=== PATIENT | male | born 1950 | race Caucasian/White ===

== ENCOUNTER → 2016-10-26 | Outpatient (REF) | payer OTHER ==
[2016-10-26 17:42] LABS: ALBUMIN 3.9 GM/DL (3.2-5.2); ALBUMIN/GLOBULIN RATIO 1.22 (1.00-1.93); ALKALINE PHOSPHATASE 60 U/L (45-117); ALT/SGPT 45 U/L (12-78); ANION GAP 11 MEQ/L (8-16); AST/SGOT 21 U/L (15-37); BILIRUBIN,TOTAL 0.4 MG/DL (0.2-1.0); BLOOD UREA NITROGEN 13 MG/DL (7-18); CALCIUM LEVEL 9.1 MG/DL (8.8-10.2); CARBON DIOXIDE LEVEL 29 MEQ/L (21-32); CHLORIDE LEVEL 100 MEQ/L (98-107); CHOLESTEROL LEVEL 170 MG/DL (<200); CREATININE FOR GFR 1.13 MG/DL (0.70-1.30); GLOMERULAR FILTRATION RATE > 60.0 (>49); GLUCOSE, FASTING 145 MG/DL (80-110); POTASSIUM SERUM 3.6 MEQ/L (3.5-5.1); SODIUM LEVEL 140 MEQ/L (136-145); TOTAL PROTEIN 7.1 GM/DL (6.4-8.2); TRIGLYCERIDES LEVEL 268 MG/DL (<150)
[2016-10-26 18:31] LABS: MEAN CORPUSCULAR HEMOGLOBIN 28.9 pg (27.0-33.0); MEAN CORPUSCULAR VOLUME 85.2 fl (80.0-96.0); RED CELL DISTRIBUTION WIDTH 12.5 % (11.5-14.5); WHITE BLOOD COUNT 8.3 K/mm3 (4.0-10.0)
== END ==
LOC: M SFHCCAPE 07:10
PROVIDERS: ATTEND Physician Assistant
DX: I10 Essential (primary) hypertension (principal); E11.9 Type 2 diabetes mellitus without complications; E78.2 Mixed hyperlipidemia; Z12.5 Encounter for screening for malignant neoplasm of prostate

== ENCOUNTER → 2017-02-01 | Outpatient (REF) | payer OTHER ==
[2017-02-01 18:58] LABS: BASO % 0.3 % (0.0-1.0); EOS # 0.2 K/mm3 (0.0-0.50); EOS % 1.8 % (0.0-3.0); LARGE UNSTAINED CELL # 0.1 K/mm3 (0.0-0.4); LARGE UNSTAINED CELL % 1.4 % (0.0-4.0); LYMPH # 2.5 K/mm3 (1.5-4.5); LYMPH % 29.6 % (24.0-44.0); MEAN CORPUSCULAR HEMOGLOBIN 30.1 pg (27.0-33.0); MEAN CORPUSCULAR HGB CONC 34.7 g/dl (32.0-36.5); MEAN CORPUSCULAR VOLUME 86.6 fl (80.0-96.0); MONO # 0.6 K/mm3 (0.0-0.8); NEUTROPHILS # 4.9 K/mm3 (1.8-7.7); NEUTROPHILS % 59.8 % (36.0-66.0); PLATELET COUNT, AUTOMATED 265 k/mm3 (150-450); RED CELL DISTRIBUTION WIDTH 12.7 % (11.5-14.5); WHITE BLOOD COUNT 8.2 K/mm3 (4.0-10.0)
[2017-02-01 19:56] LABS: ALBUMIN 3.8 GM/DL (3.2-5.2); ALBUMIN/GLOBULIN RATIO 1.19 (1.00-1.93); ALKALINE PHOSPHATASE 51 U/L (45-117); ALT/SGPT 45 U/L (12-78); ANION GAP 8 MEQ/L (8-16); AST/SGOT 16 U/L (15-37); BILIRUBIN,TOTAL 0.4 MG/DL (0.2-1.0); BLOOD UREA NITROGEN 19 MG/DL (7-18); CALCIUM LEVEL 9.4 MG/DL (8.8-10.2); CARBON DIOXIDE LEVEL 31 MEQ/L (21-32); CHLORIDE LEVEL 100 MEQ/L (98-107); CHOLESTEROL LEVEL 166 MG/DL (<200); CREATININE FOR GFR 1.11 MG/DL (0.70-1.30); GLOMERULAR FILTRATION RATE > 60.0 (>49); GLUCOSE, FASTING 155 MG/DL (80-110); POTASSIUM SERUM 3.8 MEQ/L (3.5-5.1); SODIUM LEVEL 139 MEQ/L (136-145); TRIGLYCERIDES LEVEL 241 MG/DL (<150)
== END ==
LOC: M SFHCCAPE 07:23
PROVIDERS: ATTEND Physician Assistant
DX: E11.9 Type 2 diabetes mellitus without complications (principal); E78.2 Mixed hyperlipidemia

== ENCOUNTER → 2017-04-05 | Outpatient (REF) | payer OTHER ==
[2017-04-05 19:17] LABS: BASO % 0.4 % (0.0-1.0); EOS # 0.2 K/mm3 (0.0-0.50); EOS % 2.9 % (0.0-3.0); LARGE UNSTAINED CELL # 0.2 K/mm3 (0.0-0.4); LARGE UNSTAINED CELL % 2.1 % (0.0-4.0); LYMPH # 2.5 K/mm3 (1.5-4.5); LYMPH % 33.5 % (24.0-44.0); MEAN CORPUSCULAR HEMOGLOBIN 30.4 pg (27.0-33.0); MEAN CORPUSCULAR HGB CONC 34.9 g/dl (32.0-36.5); MONO # 0.5 K/mm3 (0.0-0.8); MONO % 7.1 % (0.0-5.0); NEUTROPHILS # 3.7 K/mm3 (1.8-7.7); NEUTROPHILS % 54.1 % (36.0-66.0); PLATELET COUNT, AUTOMATED 268 k/mm3 (150-450); RED CELL DISTRIBUTION WIDTH 12.8 % (11.5-14.5); WHITE BLOOD COUNT 6.9 K/mm3 (4.0-10.0)
[2017-04-05 19:24] LABS: ALBUMIN 3.5 GM/DL (3.2-5.2); ALBUMIN/GLOBULIN RATIO 1.03 (1.00-1.93); ALKALINE PHOSPHATASE 50 U/L (45-117); ALT/SGPT 51 U/L (12-78); ANION GAP 5 MEQ/L (8-16); AST/SGOT 17 U/L (15-37); BILIRUBIN,TOTAL 0.4 MG/DL (0.2-1.0); BLOOD UREA NITROGEN 12 MG/DL (7-18); CALCIUM LEVEL 9.3 MG/DL (8.8-10.2); CARBON DIOXIDE LEVEL 32 MEQ/L (21-32); CHLORIDE LEVEL 102 MEQ/L (98-107); CHOLESTEROL LEVEL 175 MG/DL (<200); CREATININE FOR GFR 1.06 MG/DL (0.70-1.30); GLOMERULAR FILTRATION RATE > 60.0 (>49); GLUCOSE, FASTING 162 MG/DL (80-110); POTASSIUM SERUM 3.7 MEQ/L (3.5-5.1); SODIUM LEVEL 139 MEQ/L (136-145); TOTAL PROTEIN 6.9 GM/DL (6.4-8.2); TRIGLYCERIDES LEVEL 279 MG/DL (<150)
== END ==
LOC: M SFHCCAPE 07:05
PROVIDERS: ATTEND Physician Assistant
DX: E11.9 Type 2 diabetes mellitus without complications (principal)

== ENCOUNTER → 2018-06-02 | Outpatient (REF) | payer OTHER ==
[2018-06-02 18:32] LABS: ALKALINE PHOSPHATASE 51 U/L (45-117); ALT/SGPT 29 U/L (12-78); ANION GAP 8 MEQ/L (8-16); AST/SGOT 13 U/L (7-37); BLOOD UREA NITROGEN 14 MG/DL (7-18); CALCIUM LEVEL 9.2 MG/DL (8.8-10.2); CARBON DIOXIDE LEVEL 31 MEQ/L (21-32); CHLORIDE LEVEL 103 MEQ/L (98-107); CREATININE FOR GFR 1.03 MG/DL (0.70-1.30); GLOMERULAR FILTRATION RATE > 60.0 (>49); GLUCOSE, FASTING 97 MG/DL (70-100); SODIUM LEVEL 142 MEQ/L (136-145)
[2018-06-02 18:33] LABS: ALBUMIN 3.6 GM/DL (3.2-5.2); ALBUMIN/GLOBULIN RATIO 1.03 (1.00-1.93); BILIRUBIN,TOTAL 0.4 MG/DL (0.2-1.0); CHOLESTEROL LEVEL 169 MG/DL (<200); CHOLESTEROL RISK RATIO 4.567 (<5); FREE T4 0.93 NG/DL (0.76-1.46); HDL CHOLESTEROL 37 MG/DL (>40); LDL CHOLESTEROL 68.8 MG/DL (<100); NON-HDL-C 132 MG/DL; TOTAL PROTEIN 7.1 GM/DL (6.4-8.2); TRIGLYCERIDES LEVEL 316 MG/DL (<150)
[2018-06-02 18:38] LABS: ESTIMATED AVERAGE GLUCOSE 128 MG/DL (60-110); HEMOGLOBIN A1c 6.1 %
[2018-06-02 20:07] LABS: BASO % 0.5 % (0.0-1.0); EOS # 0.2 10^3/uL (0.0-0.50); HEMATOCRIT 39.6 % (42.0-52.0); IMMATURE GRANULOCYTE % 0.5 % (0-3.0); LYMPH # 2.4 10^3/uL (1.5-4.5); LYMPH % 32.4 % (24.0-44.0); MEAN CORPUSCULAR HEMOGLOBIN 28.8 pg (27.0-33.0); MEAN CORPUSCULAR HGB CONC 32.8 g/dl (32.0-36.5); MEAN CORPUSCULAR VOLUME 87.8 fl (80.0-96.0); MONO # 0.6 10^3/uL (0.0-0.8); MONO % 8.6 % (0.0-5.0); NEUTROPHILS # 4.1 10^3/uL (1.8-7.7); PLATELET COUNT, AUTOMATED 275 10^3/uL (150-450); RED BLOOD COUNT 4.51 10^6/uL (4.30-6.10); RED CELL DISTRIBUTION WIDTH 13.1 % (11.5-14.5); WHITE BLOOD COUNT 7.4 10^3/uL (4.0-10.0)
== END ==
LOC: M SFHCCAPE 07:02
DX: E11.9 Type 2 diabetes mellitus without complications (principal); I10 Essential (primary) hypertension; E78.5 Hyperlipidemia, unspecified

== ENCOUNTER → 2018-06-06 | Outpatient (REF) | payer OTHER ==
[2018-06-07 19:10] LABS: PSA SCREENING 1.66 NG/ML (< 4.0)
== END ==
LOC: M SFHCCAPE 15:12
DX: Z12.5 Encounter for screening for malignant neoplasm of prostate (principal)
CPT/HCPCS: G0103

== ENCOUNTER → 2018-12-08 | Outpatient (REF) | payer OTHER ==
[2018-12-08 17:22] LABS: HEMATOCRIT 37.9 % (42.0-52.0); HEMOGLOBIN 12.8 g/dl (13.5-17.5); MEAN CORPUSCULAR HEMOGLOBIN 29.4 pg (27.0-33.0); MEAN CORPUSCULAR HGB CONC 33.8 g/dl (32.0-36.5); MEAN CORPUSCULAR VOLUME 87.1 fl (80.0-96.0); PLATELET COUNT, AUTOMATED 277 10^3/uL (150-450); RED BLOOD COUNT 4.35 10^6/uL (4.30-6.10); WHITE BLOOD COUNT 12.4 10^3/uL (4.0-10.0)
[2018-12-08 17:34] LABS: CREATININE FOR GFR 1.35 MG/DL (0.70-1.30); GLOMERULAR FILTRATION RATE 56.1 (>49); POTASSIUM SERUM 3.7 MEQ/L (3.5-5.1)
== END ==
LOC: M SFHCCLAY 13:27
PROVIDERS: ATTEND Family Medicine
DX: Z01.818 Encounter for other preprocedural examination (principal)

== ENCOUNTER → 2019-08-02 | Outpatient (REF) | payer OTHER ==
[2019-08-02 17:17] LABS: ALBUMIN 3.7 GM/DL (3.2-5.2); ALT/SGPT 32 U/L (12-78); BILIRUBIN,TOTAL 0.4 MG/DL (0.2-1.0); BLOOD UREA NITROGEN 17 MG/DL (7-18); CALCIUM LEVEL 9.5 MG/DL (8.8-10.2); CARBON DIOXIDE LEVEL 32 MEQ/L (21-32); CHLORIDE LEVEL 103 MEQ/L (98-107); CHOLESTEROL LEVEL 177 MG/DL (<200); CHOLESTEROL RISK RATIO 4.214 (<5); CREATININE FOR GFR 1.19 MG/DL (0.70-1.30); GLOMERULAR FILTRATION RATE > 60.0 (>49); GLUCOSE, FASTING 69 MG/DL (70-100); HDL CHOLESTEROL 42 MG/DL (>40); LDL CHOLESTEROL 92 MG/DL (<100); NON-HDL-C 135 MG/DL; POTASSIUM SERUM 3.6 MEQ/L (3.5-5.1); SODIUM LEVEL 140 MEQ/L (136-145); TOTAL PROTEIN 7.3 GM/DL (6.4-8.2); TRIGLYCERIDES LEVEL 214 MG/DL (<150)
[2019-08-02 17:19] LABS: BASO % 0.5 % (0.0-1.0); EOS # 0.2 10^3/uL (0.0-0.5); EOS % 2.8 % (0.0-3.0); HEMATOCRIT 41.1 % (42.0-52.0); HEMOGLOBIN 13.1 g/dl (13.5-17.5); LYMPH # 2.4 10^3/uL (1.5-5.0); LYMPH % 29.5 % (24.0-44.0); MEAN CORPUSCULAR HEMOGLOBIN 28.4 pg (27.0-33.0); MEAN CORPUSCULAR HGB CONC 31.9 g/dl (32.0-36.5); MEAN CORPUSCULAR VOLUME 89.2 fl (80.0-96.0); MONO # 0.7 10^3/uL (0.0-0.8); MONO % 8.4 % (0.0-5.0); NEUTROPHILS # 4.8 10^3/uL (1.5-8.5); NEUTROPHILS % 58.2 % (36.0-66.0); PLATELET COUNT, AUTOMATED 284 10^3/uL (150-450); RED BLOOD COUNT 4.61 10^6/uL (4.30-6.10); WHITE BLOOD COUNT 8.3 10^3/uL (4.0-10.0)
[2019-08-02 17:40] LABS: MALB URINE SIEMENS 10.1 MG/L
[2019-08-02 17:41] LABS: HEMOGLOBIN A1c 6.4 %
== END ==
LOC: M SFHCCAPE 07:01
PROVIDERS: ATTEND Physician Assistant
DX: E11.8 Type 2 diabetes mellitus with unspecified complications (principal); E78.2 Mixed hyperlipidemia; Z12.5 Encounter for screening for malignant neoplasm of prostate

== ENCOUNTER → 2020-06-25 | Outpatient (REF) | payer OTHER ==
[2020-06-25 12:44] LABS: BASO % 0.5 % (0.0-1.0); EOS # 0.2 10^3/uL (0.0-0.5); HEMATOCRIT 41.5 % (42.0-52.0); HEMOGLOBIN 13.5 g/dl (13.5-17.5); LYMPH # 2.6 10^3/uL (1.5-5.0); MEAN CORPUSCULAR HEMOGLOBIN 28.4 pg (27.0-33.0); MEAN CORPUSCULAR HGB CONC 32.5 g/dl (32.0-36.5); MEAN CORPUSCULAR VOLUME 87.4 fl (80.0-96.0); MONO # 0.7 10^3/uL (0.0-0.8); MONO % 8.5 % (0.0-5.0); NEUTROPHILS # 4.4 10^3/uL (1.5-8.5); NEUTROPHILS % 55.6 % (36.0-66.0); PLATELET COUNT, AUTOMATED 268 10^3/uL (150-450); RED BLOOD COUNT 4.75 10^6/uL (4.30-6.10)
[2020-06-25 12:55] LABS: ALBUMIN 3.6 GM/DL (3.2-5.2); ALT/SGPT 43 U/L (12-78); BILIRUBIN,TOTAL 0.4 MG/DL (0.2-1.0); BLOOD UREA NITROGEN 12 MG/DL (7-18); CALCIUM LEVEL 9.6 MG/DL (8.8-10.2); CARBON DIOXIDE LEVEL 31 MEQ/L (21-32); CHLORIDE LEVEL 103 MEQ/L (98-107); CHOLESTEROL LEVEL 186 MG/DL (<200); CHOLESTEROL RISK RATIO 4.428 (<5); CREATININE FOR GFR 1.13 MG/DL (0.70-1.30); FREE T4 1.06 NG/DL (0.76-1.46); GLOMERULAR FILTRATION RATE > 60.0 (>49); GLUCOSE, FASTING 125 MG/DL (70-100); HDL CHOLESTEROL 42 MG/DL (>40); LDL CHOLESTEROL 103 MG/DL (<100); NON-HDL-C 144 MG/DL; POTASSIUM SERUM 3.9 MEQ/L (3.5-5.1); SODIUM LEVEL 140 MEQ/L (136-145); TRIGLYCERIDES LEVEL 204 MG/DL (<150)
[2020-06-25 13:29] LABS: HEMOGLOBIN A1c 6.5 %
== END ==
LOC: M SFHCCLAY 11:31
PROVIDERS: ATTEND Physician Assistant
DX: E11.8 Type 2 diabetes mellitus with unspecified complications (principal); I10 Essential (primary) hypertension; E78.2 Mixed hyperlipidemia

== ENCOUNTER → 2021-01-06 | Outpatient (REF) | payer OTHER ==
[2021-01-06 16:40] LABS: BASO # 0.1 10^3/uL (0.0-0.2); BASO % 0.6 % (0.0-1.0); EOS # 0.4 10^3/uL (0.0-0.5); EOS % 4.1 % (0.0-3.0); HEMOGLOBIN 13.7 g/dl (13.5-17.5); LYMPH # 2.5 10^3/uL (1.5-5.0); MEAN CORPUSCULAR HGB CONC 33.4 g/dl (32.0-36.5); MEAN CORPUSCULAR VOLUME 86.7 fl (80.0-96.0); MONO # 0.7 10^3/uL (0.0-0.8); MONO % 7.9 % (2.0-8.0); NEUTROPHILS # 5.2 10^3/uL (1.5-8.5); NEUTROPHILS % 58.6 % (36.0-66.0); PLATELET COUNT, AUTOMATED 266 10^3/uL (150-450); RED BLOOD COUNT 4.73 10^6/uL (4.30-6.10); WHITE BLOOD COUNT 8.8 10^3/uL (4.0-10.0)
[2021-01-06 17:17] LABS: ALBUMIN 3.8 GM/DL (3.2-5.2); ALT/SGPT 44 U/L (12-78); BILIRUBIN,TOTAL 0.4 MG/DL (0.2-1.0); BLOOD UREA NITROGEN 16 MG/DL (7-18); CALCIUM LEVEL 9.8 MG/DL (8.8-10.2); CARBON DIOXIDE LEVEL 30 MEQ/L (21-32); CHLORIDE LEVEL 103 MEQ/L (98-107); CHOLESTEROL LEVEL 145 MG/DL (<200); CHOLESTEROL RISK RATIO 4.027 (<5); CREATININE FOR GFR 0.95 MG/DL (0.70-1.30); GLOMERULAR FILTRATION RATE > 60.0 (>49); GLUCOSE, FASTING 79 MG/DL (70-100); HDL CHOLESTEROL 36 MG/DL (>40); LDL CHOLESTEROL 69 MG/DL (<100); NON-HDL-C 109 MG/DL; POTASSIUM SERUM 3.8 MEQ/L (3.5-5.1); SODIUM LEVEL 139 MEQ/L (136-145); TRIGLYCERIDES LEVEL 202 MG/DL (<150)
[2021-01-06 17:20] LABS: CREATININE, URINE 85.5 MG/DL; MALB URINE SIEMENS 6.6 MG/L; MAU/CREAT RATIO 7.7 MCG/MG (0.0-30.0)
[2021-01-06 17:33] LABS: HEMOGLOBIN A1c 6.4 %
== END ==
LOC: M SFHCCAPE 07:16
PROVIDERS: ATTEND Physician Assistant
DX: E11.8 Type 2 diabetes mellitus with unspecified complications (principal); I10 Essential (primary) hypertension; E78.2 Mixed hyperlipidemia; Z12.5 Encounter for screening for malignant neoplasm of prostate

== ENCOUNTER → 2021-05-20 | Outpatient (CLI) | payer OTHER ==
--- NOTE | 2021-05-20 12:52 | REP ---
INDICATION: ENCOUNTER FOR OTHER PREPROCEDURAL EXAMINATION COMPARISON: 07/17/2009 TECHNIQUE: PA and lateral. FINDINGS: The mediastinum and cardiac silhouette are normal. The lung vieyra are clear and without acute consolidation, effusion, or pneumothorax. The skeletal structures are intact and normal. IMPRESSION: No acute cardiopulmonary process. <Electronically signed by Jimbo Diaz > 05/20/21 [id number]
== END ==
LOC: M RAD 12:23
PROVIDERS: ATTEND Physician Assistant
DX: Z01.818 Encounter for other preprocedural examination (principal)

== ENCOUNTER → 2021-05-21 | Outpatient (REF) | payer OTHER ==
[2021-05-21 16:12] LABS: APPEARANCE, URINE HAZY (CLEAR); BACTERIA, URINE AUTO NEGATIVE (NEGATIVE); BILIRUBIN, URINE AUTO NEGATIVE (NEGATIVE); BLOOD, URINE BLOOD NEGATIVE (NEGATIVE); COLOR, URINE YELLOW (YELLOW); GLUCOSE, URINE (UA) AUTO NEGATIVE (NEGATIVE); KETONE, URINE AUTO NEGATIVE (NEGATIVE); LEUKOCYTE ESTERASE, URINE AUTO NEGATIVE (NEGATIVE); NITRITE, URINE AUTO NEGATIVE (NEGATIVE); PROTEIN, URINE AUTO NEGATIVE (NEGATIVE); RBC, URINE AUTO 0 /HPF (0-3); SPECIFIC GRAVITY URINE AUTO 1.023 (1.002-1.035); SQUAMOUS EPITHELIAL CELL UR AU 1 /HPF (0-6); UROBILINOGEN, URINE AUTO 0.2 mg/dL (0.0-2.0); WBC, URINE AUTO 2 /HPF (0-3)
[2021-05-21 16:33] LABS: FOLLICLE STIMULATING HORMONE 4.9 mIU/mL (1.4-18.1); PROLACTIN 10.2 NG/ML (2.1-17.7)
== END ==
LOC: M SFHCCAPE 07:03
PROVIDERS: ATTEND Physician Assistant
DX: N52.9 Male erectile dysfunction, unspecified (principal)

== ENCOUNTER → 2021-12-15 | Outpatient (CLI) | payer OTHER ==
[~2021-12-15] MED LIST: ECOT81TA5 PO; FLOM0.4C39 PO; GLIP5TAB8 PO; INSU100V11 SQ; LISI20TA37 PO; METF-877 PO; OMEP-173 PO; PRAV20TA2 PO
== END ==
LOC: M LABSMTC 09:13
PROVIDERS: ATTEND Anesthesiology
DX: Z01.818 Encounter for other preprocedural examination (principal); Z11.52 Encounter for screening for COVID-19

== ENCOUNTER → 2021-12-17 | Outpatient (REF) | payer OTHER ==
[2021-12-17 15:55] LABS: BASO # 0.1 10^3/uL (0.0-0.2); BASO % 0.6 % (0.0-1.0); EOS # 0.3 10^3/uL (0.0-0.5); EOS % 2.9 % (0.0-3.0); HEMATOCRIT 38.8 % (42.0-52.0); HEMOGLOBIN 12.9 g/dl (13.5-17.5); LYMPH # 2.7 10^3/uL (1.5-5.0); LYMPH % 31.2 % (24.0-44.0); MEAN CORPUSCULAR HEMOGLOBIN 28.6 pg (27.0-33.0); MEAN CORPUSCULAR HGB CONC 33.2 g/dl (32.0-36.5); MONO # 0.9 10^3/uL (0.0-0.8); MONO % 10.3 % (2.0-8.0); NEUTROPHILS # 4.7 10^3/uL (1.5-8.5); NEUTROPHILS % 54.6 % (36.0-66.0); PLATELET COUNT, AUTOMATED 277 10^3/uL (150-450); RED BLOOD COUNT 4.51 10^6/uL (4.30-6.10); WHITE BLOOD COUNT 8.6 10^3/uL (4.0-10.0)
[2021-12-17 16:13] LABS: ALBUMIN 3.7 GM/DL (3.2-5.2); ALT/SGPT 36 U/L (12-78); BILIRUBIN,TOTAL 0.6 MG/DL (0.2-1.0); BLOOD UREA NITROGEN 17 MG/DL (7-18); CALCIUM LEVEL 9.2 MG/DL (8.8-10.2); CARBON DIOXIDE LEVEL 30 MEQ/L (21-32); CHLORIDE LEVEL 104 MEQ/L (98-107); CHOLESTEROL LEVEL 138 MG/DL (<200); CHOLESTEROL RISK RATIO 3.729 (<5); CREATININE FOR GFR 1.11 MG/DL (0.70-1.30); GLOMERULAR FILTRATION RATE > 60.0 (>42); GLUCOSE, FASTING 115 MG/DL (70-100); HDL CHOLESTEROL 37 MG/DL (>40); LDL CHOLESTEROL 70 MG/DL (<100); NON-HDL-C 101 MG/DL; POTASSIUM SERUM 3.8 MEQ/L (3.5-5.1); SODIUM LEVEL 139 MEQ/L (136-145); TOTAL 25(OH) VITAMIN D 30.8 NG/ML (30.0-100.0); TOTAL PROTEIN 6.7 GM/DL (6.4-8.2); TRIGLYCERIDES LEVEL 155 MG/DL (<150)
[2021-12-17 16:25] LABS: CREATININE, URINE 71.6 MG/DL; MALB URINE SIEMENS < 5.0 MG/L; MAU/CREAT RATIO 6.9 MCG/MG (0.0-30.0)
== END ==
LOC: M SFHCCAPE 08:30
PROVIDERS: ATTEND Physician Assistant
DX: Z01.818 Encounter for other preprocedural examination (principal); H26.9 Unspecified cataract; E11.8 Type 2 diabetes mellitus with unspecified complications; Z12.5 Encounter for screening for malignant neoplasm of prostate
CPT/HCPCS: 80053; 80061; 82043; 82306; 83036; 84443; 85025; G0103

== ENCOUNTER 2021-12-19 06:26 | Day surgery (SDC) | payer OTHER ==
[~2021-12-19] VITALS: Ht 170.2 cm; Wt 107.7 kg
[~2021-12-19 06:26] MED LIST changes: +PROPARACAINE 0.5% OPHTH SOL 15ML OS ONE
[2021-12-19] MEDS ORDERED: BSS IRR 500ML/OMIDRIA 4ML IRR BAG (OR ONLY) As Ordered ONE (06:44)
[2021-12-19] MEDS ORDERED: ACETYLCHOLINE OPHTH SOLN 1% 2ML (MIOCHOL-E) As Ordered ONE (06:44)
[2021-12-19] MEDS ORDERED: CEFUROXIME 1MG/0.1ML INTRACAMERAL INJ As Ordered ONE (06:44)
[2021-12-19] MEDS ORDERED: LIDOCAINE 1% SDV 5ML VIAL As Ordered ONE (06:54)
[2021-12-19] MEDS: OFLOXACIN 0.3 % (OCUFLOX) OPTH SOL 5ML OS SCH ×3 (06:59→07:19)
[2021-12-19] MEDS: PHENYLEPHRINE 2.5% OPHTH SOL 2ML OS SCH ×3 (06:59→07:19)
[2021-12-19] MEDS: TROPICAMIDE 1% OPHTH SOLN 2ML OS SCH ×3 (06:59→07:19)
[2021-12-19] MEDS ORDERED: MIDAZOLAM INJ 2MG/2ML VIAL (J2250 PER 1MG) As Ordered ONE (07:03)
[2021-12-19] MEDS ORDERED: DUOVISC (0.50ML VISCOAT/0.85ML PROVISC) OPHTH KIT As Ordered ONE (07:08)
[2021-12-19] MEDS ORDERED: TRYPAN BLUE 0.06 % 2.25 ML OPHTH SYR (VISIONBLUE) As Ordered ONE (07:29)
[2021-12-19] MEDS ORDERED: PHENYLEPHRINE HCL 10 % OPHTH. SOL 5ML OS ONE (07:30)
[2021-12-19] MEDS ORDERED: LABETALOL 100MG/20ML VIAL As Ordered ONE (08:10)
[2021-12-19 08:37] VITALS: BP 156/71
== END 2021-12-19 08:52 | disposition home or self-care (01) ==
LOC: M SDC 06:26
PROVIDERS: ATTEND Ophthalmology
DX: H25.12 Age-related nuclear cataract, left eye (principal); H40.10X2 Unspecified open-angle glaucoma, moderate stage; H21.81 Floppy iris syndrome; I10 Essential (primary) hypertension; E11.9 Type 2 diabetes mellitus without complications; K21.9 Gastro-esophageal reflux disease without esophagitis; R01.1 Cardiac murmur, unspecified; E78.00 Pure hypercholesterolemia, unspecified; M19.90 Unspecified osteoarthritis, unspecified site; Z79.899 Other long term (current) drug therapy; Z79.82 Long term (current) use of aspirin; Z79.4 Long term (current) use of insulin
CPT/HCPCS: 66183; 66982; C1783; J1097; J2250

== ENCOUNTER → 2022-12-03 | Outpatient (REF) | payer MEDICARE ==
[~2022-12-03] MED LIST changes: -PROPARACAINE 0.5% OPHTH SOL 15ML OS ONE
[2022-12-03 18:08] LABS: BASO % 0.5 % (0.0-1.0); EOS # 0.2 10^3/uL (0.0-0.5); EOS % 2.7 % (0.0-3.0); HEMATOCRIT 37.2 % (42.0-52.0); HEMOGLOBIN 12.1 g/dl (13.5-17.5); LYMPH # 2.3 10^3/uL (1.5-5.0); LYMPH % 31.2 % (24.0-44.0); MEAN CORPUSCULAR HGB CONC 32.5 g/dl (32.0-36.5); MEAN CORPUSCULAR VOLUME 86.1 fl (80.0-96.0); MONO # 0.8 10^3/uL (0.0-0.8); MONO % 10.4 % (2.0-8.0); NEUTROPHILS # 4.1 10^3/uL (1.5-8.5); NEUTROPHILS % 54.7 % (36.0-66.0); PLATELET COUNT, AUTOMATED 269 10^3/uL (150-450); RED BLOOD COUNT 4.32 10^6/uL (4.30-6.10); WHITE BLOOD COUNT 7.5 10^3/uL (4.0-10.0)
[2022-12-03 18:27] LABS: HEMOGLOBIN A1c 7.8 % (4.0-6.0)
[2022-12-03 18:34] LABS: CREATININE, URINE 152.1 MG/DL; MAU/CREAT RATIO 3.2 MCG/MG (0.0-30.0)
[2022-12-03 18:40] LABS: ALBUMIN 3.6 G/DL (3.2-5.2); ALKALINE PHOSPHATASE 48 U/L (46-116); ALT/SGPT 31 U/L (7.0-40); AST/SGOT 20 U/L (<34); BILIRUBIN,TOTAL 0.4 MG/DL (0.3-1.2); BLOOD UREA NITROGEN 12 MG/DL (9-23); CALCIUM LEVEL 9.2 MG/DL (8.3-10.6); CARBON DIOXIDE LEVEL 31 MMOL/L (20-31); CHLORIDE LEVEL 103 MMOL/L (98-107); CHOLESTEROL LEVEL 119 MG/DL (<200); CHOLESTEROL RISK RATIO 3.32 (<5); CREATININE FOR GFR 0.93 MG/DL (0.70-1.30); GLOMERULAR FILTRATION RATE > 60.0 (>42); GLUCOSE, FASTING 96 MG/DL (74-106); HDL CHOLESTEROL 35.8 MG/DL (>40); LDL CHOLESTEROL 53.4 MG/DL (<100); NON-HDL-C 83.2 MG/DL; POTASSIUM SERUM 3.7 MMOL/L (3.5-5.1); SODIUM LEVEL 140 MMOL/L (136-145); TOTAL PROTEIN 6.5 G/DL (5.7-8.2); TRIGLYCERIDES LEVEL 149 MG/DL (<150)
[2022-12-03 18:41] LABS: THYROID STIMULATING HORMONE 2.059 uIU/ML (0.55-4.78)
[2022-12-03 18:42] LABS: TOTAL 25(OH) VITAMIN D 37.8 NG/ML (20.0-100.0)
== END ==
LOC: M SFHCCAPE 07:11
PROVIDERS: ATTEND Physician Assistant
DX: Z00.00 Encounter for general adult medical examination without abnormal findings (principal); Z79.899 Other long term (current) drug therapy
CPT/HCPCS: 80053; 80061; 82043; 82306; 83036; 84443; 85025; G0103

== ENCOUNTER → 2023-03-11 | Outpatient (REF) | payer MEDICARE ==
[2023-03-11 18:01] LABS: BASO # 0.1 10^3/uL (0.0-0.2); BASO % 0.7 % (0.0-1.0); EOS # 0.3 10^3/uL (0.0-0.5); EOS % 2.8 % (0.0-3.0); HEMATOCRIT 40.7 % (42.0-52.0); HEMOGLOBIN 13.3 g/dl (13.5-17.5); LYMPH # 2.9 10^3/uL (1.5-5.0); MEAN CORPUSCULAR HEMOGLOBIN 27.9 pg (27.0-33.0); MEAN CORPUSCULAR HGB CONC 32.7 g/dl (32.0-36.5); MEAN CORPUSCULAR VOLUME 85.3 fl (80.0-96.0); MONO # 0.9 10^3/uL (0.0-0.8); MONO % 9.8 % (2.0-8.0); NEUTROPHILS # 4.8 10^3/uL (1.5-8.5); PLATELET COUNT, AUTOMATED 293 10^3/uL (150-450); RED BLOOD COUNT 4.77 10^6/uL (4.30-6.10); WHITE BLOOD COUNT 8.9 10^3/uL (4.0-10.0)
[2023-03-11 18:04] LABS: APPEARANCE, URINE CLEAR (CLEAR); BACTERIA, URINE AUTO NEGATIVE (NEGATIVE); BILIRUBIN, URINE AUTO NEGATIVE (NEGATIVE); BLOOD, URINE BLOOD NEGATIVE (NEGATIVE); COLOR, URINE YELLOW (YELLOW); GLUCOSE, URINE (UA) AUTO NEGATIVE (NEGATIVE); KETONE, URINE AUTO NEGATIVE (NEGATIVE); LEUKOCYTE ESTERASE, URINE AUTO NEGATIVE (NEGATIVE); NITRITE, URINE AUTO NEGATIVE (NEGATIVE); PROTEIN, URINE AUTO NEGATIVE (NEGATIVE); RBC, URINE AUTO 0 /HPF (0-3); SPECIFIC GRAVITY URINE AUTO 1.011 (1.002-1.035); SQUAMOUS EPITHELIAL CELL UR AU 0 /HPF (0-6); UROBILINOGEN, URINE AUTO 0.2 mg/dL (0.0-2.0); WBC, URINE AUTO 2 /HPF (0-3)
[2023-03-11 18:40] LABS: TOTAL IRON BINDING CAPACITY 361 UG/DL (250-425)
[2023-03-11 18:41] LABS: ALBUMIN 3.8 G/DL (3.2-5.2); ALKALINE PHOSPHATASE 54 U/L (46-116); ALT/SGPT 29 U/L (7.0-40); AST/SGOT 14 U/L (<34); BILIRUBIN,TOTAL 0.5 MG/DL (0.3-1.2); BLOOD UREA NITROGEN 16 MG/DL (9-23); CALCIUM LEVEL 10.1 MG/DL (8.3-10.6); CARBON DIOXIDE LEVEL 28 MMOL/L (20-31); CHLORIDE LEVEL 101 MMOL/L (98-107); CREATININE FOR GFR 0.91 MG/DL (0.70-1.30); GLOMERULAR FILTRATION RATE > 60.0 (>42); GLUCOSE, FASTING 141 MG/DL (74-106); IRON (FE) 55 UG/DL (65-175); PERCENT SATURATION 15.2 % (19.7-50.0); SODIUM LEVEL 138 MMOL/L (136-145); TOTAL PROTEIN 6.9 G/DL (5.7-8.2)
[2023-03-11 18:43] LABS: VITAMIN B12 LEVEL 261 PG/ML (211-911)
[2023-03-11 18:49] LABS: HEMOGLOBIN A1c 7.9 % (4.0-6.0)
[2023-03-11 18:50] LABS: FOLATE 23.8 NG/ML (>5.4)
== END ==
LOC: M SFHCCAPE 07:10
PROVIDERS: ATTEND Physician Assistant
DX: E11.9 Type 2 diabetes mellitus without complications (principal); R39.9 Unspecified symptoms and signs involving the genitourinary system; D64.9 Anemia, unspecified

== ENCOUNTER → 2023-08-17 | Outpatient (REF) | payer MEDICARE ==
[~2023-08-17] MED LIST changes: +GLIP5TAB17 PO; -GLIP5TAB8 PO
[2023-08-17 18:26] LABS: BASO # 0.1 10^3/uL (0.0-0.2); BASO % 0.8 % (0.0-1.0); EOS # 0.2 10^3/uL (0.0-0.5); EOS % 2.9 % (0.0-3.0); HEMOGLOBIN 12.9 g/dl (13.5-17.5); LYMPH # 2.4 10^3/uL (1.5-5.0); LYMPH % 30.4 % (24.0-44.0); MEAN CORPUSCULAR HEMOGLOBIN 28.7 pg (27.0-33.0); MEAN CORPUSCULAR HGB CONC 33.1 g/dl (32.0-36.5); MEAN CORPUSCULAR VOLUME 86.9 fl (80.0-96.0); MONO # 0.7 10^3/uL (0.0-0.8); MONO % 9.3 % (2.0-8.0); NEUTROPHILS # 4.4 10^3/uL (1.5-8.5); NEUTROPHILS % 56.1 % (36.0-66.0); PLATELET COUNT, AUTOMATED 296 10^3/uL (150-450); RED BLOOD COUNT 4.49 10^6/uL (4.30-6.10); WHITE BLOOD COUNT 7.8 10^3/uL (4.0-10.0)
[2023-08-17 18:30] LABS: ALBUMIN 3.6 G/DL (3.2-5.2); ALKALINE PHOSPHATASE 63 U/L (46-116); ALT/SGPT 35 U/L (7.0-40); AST/SGOT 17 U/L (<34); BILIRUBIN,TOTAL 0.3 MG/DL (0.3-1.2); BLOOD UREA NITROGEN 14 MG/DL (9-23); CALCIUM LEVEL 9.6 MG/DL (8.3-10.6); CARBON DIOXIDE LEVEL 31 MMOL/L (20-31); CHLORIDE LEVEL 103 MMOL/L (98-107); CREATININE FOR GFR 0.99 MG/DL (0.70-1.30); GLOMERULAR FILTRATION RATE > 60.0 (>42); GLUCOSE, FASTING 152 MG/DL (74-106); SODIUM LEVEL 142 MMOL/L (136-145); TOTAL PROTEIN 6.7 G/DL (5.7-8.2)
[2023-08-17 18:47] LABS: HEMOGLOBIN A1c 8.7 % (4.0-6.0)
== END ==
LOC: M SFHCCAPE 07:06
PROVIDERS: ATTEND Physician Assistant Medical
DX: K21.9 Gastro-esophageal reflux disease without esophagitis (principal); E11.9 Type 2 diabetes mellitus without complications

== ENCOUNTER → 2023-12-21 | Outpatient (REF) | payer MEDICARE ==
[2023-12-21 18:00] LABS: BASO # 0.1 10^3/uL (0.0-0.2); BASO % 0.6 % (0.0-1.0); EOS # 0.3 10^3/uL (0.0-0.5); EOS % 3.1 % (0.0-3.0); HEMATOCRIT 38.1 % (42.0-52.0); HEMOGLOBIN 12.5 g/dl (13.5-17.5); LYMPH # 2.4 10^3/uL (1.5-5.0); LYMPH % 29.2 % (24.0-44.0); MEAN CORPUSCULAR HEMOGLOBIN 28.2 pg (27.0-33.0); MEAN CORPUSCULAR HGB CONC 32.8 g/dl (32.0-36.5); MONO # 0.8 10^3/uL (0.0-0.8); MONO % 9.6 % (2.0-8.0); NEUTROPHILS # 4.6 10^3/uL (1.5-8.5); NEUTROPHILS % 56.9 % (36.0-66.0); PLATELET COUNT, AUTOMATED 290 10^3/uL (150-450); RED BLOOD COUNT 4.43 10^6/uL (4.30-6.10); WHITE BLOOD COUNT 8.1 10^3/uL (4.0-10.0)
[2023-12-21 18:02] LABS: HEMOGLOBIN A1c 8.9 % (4.0-6.0)
[2023-12-21 18:15] LABS: CREATININE, URINE 119.2 MG/DL; MAU/CREAT RATIO 8.3 MCG/MG (0.0-30.0)
[2023-12-21 18:16] LABS: ALBUMIN 3.5 G/DL (3.2-5.2); ALKALINE PHOSPHATASE 46 U/L (46-116); ALT/SGPT 31 U/L (7.0-40); AST/SGOT 19 U/L (<34); BILIRUBIN,TOTAL 0.4 MG/DL (0.3-1.2); BLOOD UREA NITROGEN 17 MG/DL (9-23); CALCIUM LEVEL 9.4 MG/DL (8.3-10.6); CARBON DIOXIDE LEVEL 32 MMOL/L (20-31); CHLORIDE LEVEL 102 MMOL/L (98-107); CHOLESTEROL LEVEL 143 MG/DL (<200); CHOLESTEROL RISK RATIO 3.82 (<5); CREATININE FOR GFR 0.88 MG/DL (0.70-1.30); GLOMERULAR FILTRATION RATE > 60.0 (>42); GLUCOSE, FASTING 168 MG/DL (74-106); HDL CHOLESTEROL 37.4 MG/DL (>40); LDL CHOLESTEROL 62.2 MG/DL (<100); NON-HDL-C 105.6 MG/DL; POTASSIUM SERUM 3.8 MMOL/L (3.5-5.1); SODIUM LEVEL 137 MMOL/L (136-145); TOTAL PROTEIN 6.7 G/DL (5.7-8.2); TRIGLYCERIDES LEVEL 217 MG/DL (<150)
[2023-12-21 18:18] LABS: VITAMIN B12 LEVEL 291 PG/ML (211-911)
[2023-12-21 18:19] LABS: FOLATE > 24.0 NG/ML (>5.4)
== END ==
LOC: M SFHCCAPE 07:26
PROVIDERS: ATTEND Physician Assistant Medical
DX: E11.9 Type 2 diabetes mellitus without complications (principal); E78.2 Mixed hyperlipidemia; K21.9 Gastro-esophageal reflux disease without esophagitis

== ENCOUNTER → 2024-03-21 | Outpatient (REF) | payer MEDICARE ==
[2024-03-21 18:07] LABS: ALBUMIN 3.4 G/DL (3.2-5.2); ALKALINE PHOSPHATASE 54 U/L (46-116); ALT/SGPT 36 U/L (7.0-40); AST/SGOT 13 U/L (<34); BILIRUBIN,TOTAL 0.4 MG/DL (0.3-1.2); BLOOD UREA NITROGEN 15 MG/DL (9-23); CALCIUM LEVEL 9.6 MG/DL (8.3-10.6); CARBON DIOXIDE LEVEL 32 MMOL/L (20-31); CHLORIDE LEVEL 100 MMOL/L (98-107); CREATININE FOR GFR 0.94 MG/DL (0.70-1.30); GLOMERULAR FILTRATION RATE > 60.0 (>42); GLUCOSE, FASTING 192 MG/DL (74-106); POTASSIUM SERUM 3.8 MMOL/L (3.5-5.1); PSA SCREENING 1.12 NG/ML (< 4.00); SODIUM LEVEL 137 MMOL/L (136-145); TOTAL PROTEIN 6.4 G/DL (5.7-8.2)
[2024-03-21 18:08] LABS: VITAMIN B12 LEVEL 408 PG/ML (211-911)
[2024-03-21 18:14] LABS: HEMOGLOBIN A1c 8.5 % (4.0-6.0)
== END ==
LOC: M SFHCCAPE 07:05
PROVIDERS: ATTEND Physician Assistant Medical
DX: E11.9 Type 2 diabetes mellitus without complications (principal); E53.8 Deficiency of other specified B group vitamins; R39.11 Hesitancy of micturition; Z12.5 Encounter for screening for malignant neoplasm of prostate
CPT/HCPCS: 80053; 82607; 83036; G0103

== ENCOUNTER → 2024-06-07 | Outpatient (REF) | payer MEDICARE ==
[2024-06-07 18:05] LABS: BASO # 0.1 10^3/uL (0.0-0.2); BASO % 0.6 % (0.0-1.0); EOS # 0.4 10^3/uL (0.0-0.5); EOS % 4.6 % (0.0-3.0); HEMATOCRIT 38.4 % (42.0-52.0); HEMOGLOBIN 12.5 g/dl (13.5-17.5); LYMPH # 1.8 10^3/uL (1.5-5.0); LYMPH % 23.5 % (24.0-44.0); MEAN CORPUSCULAR HEMOGLOBIN 27.8 pg (27.0-33.0); MEAN CORPUSCULAR HGB CONC 32.6 g/dl (32.0-36.5); MEAN CORPUSCULAR VOLUME 85.5 fl (80.0-96.0); MONO # 0.8 10^3/uL (0.0-0.8); MONO % 9.8 % (2.0-8.0); NEUTROPHILS # 4.8 10^3/uL (1.5-8.5); PLATELET COUNT, AUTOMATED 280 10^3/uL (150-450); RED BLOOD COUNT 4.49 10^6/uL (4.30-6.10); WHITE BLOOD COUNT 7.8 10^3/uL (4.0-10.0)
[2024-06-07 18:23] LABS: ALBUMIN 3.6 G/DL (3.2-5.2); ALKALINE PHOSPHATASE 54 U/L (46-116); ALT/SGPT 35 U/L (7.0-40); AST/SGOT 21 U/L (<34); BILIRUBIN,TOTAL 0.4 MG/DL (0.3-1.2); BLOOD UREA NITROGEN 13 MG/DL (9-23); CALCIUM LEVEL 9.5 MG/DL (8.3-10.6); CARBON DIOXIDE LEVEL 30 MMOL/L (20-31); CHLORIDE LEVEL 104 MMOL/L (98-107); CREATININE FOR GFR 1.01 MG/DL (0.70-1.30); GLOMERULAR FILTRATION RATE > 60.0 (>42); GLUCOSE, FASTING 104 MG/DL (74-106); POTASSIUM SERUM 3.8 MMOL/L (3.5-5.1); SODIUM LEVEL 137 MMOL/L (136-145); TOTAL PROTEIN 6.7 G/DL (5.7-8.2)
[2024-06-07 18:26] LABS: HEMOGLOBIN A1c 7.6 % (4.0-6.0)
== END ==
LOC: M SFHCCAPE 07:15
PROVIDERS: ATTEND Physician Assistant Medical
DX: D64.9 Anemia, unspecified (principal); E11.9 Type 2 diabetes mellitus without complications

== ENCOUNTER → 2024-11-15 | Outpatient (REF) | payer MEDICARE ==
[2024-11-15 17:29] LABS: ALBUMIN 3.4 G/DL (3.2-5.2); ALKALINE PHOSPHATASE 46 U/L (40-129); ALT/SGPT 36 U/L (7.0-40); AST/SGOT 24 U/L (<34); BILIRUBIN,TOTAL 0.4 MG/DL (0.3-1.2); BLOOD UREA NITROGEN 14 MG/DL (9-23); CALCIUM LEVEL 9.4 MG/DL (8.3-10.6); CARBON DIOXIDE LEVEL 28 MMOL/L (20-31); CHLORIDE LEVEL 106 MMOL/L (98-107); CHOLESTEROL LEVEL 136 MG/DL (<200); CHOLESTEROL RISK RATIO 3.75 (<5); CREATININE FOR GFR 1.07 MG/DL (0.70-1.30); GLOMERULAR FILTRATION RATE > 60.0 (>42); GLUCOSE, FASTING 91 MG/DL (74-106); HDL CHOLESTEROL 36.2 MG/DL (>40); LDL CHOLESTEROL 61.6 MG/DL (<100); NON-HDL-C 99.8 MG/DL; POTASSIUM SERUM 3.4 MMOL/L (3.5-5.1); SODIUM LEVEL 143 MMOL/L (136-145); TOTAL PROTEIN 6.8 G/DL (5.7-8.2); TRIGLYCERIDES LEVEL 191 MG/DL (<150)
[2024-11-15 17:38] LABS: HEMOGLOBIN A1c 8.2 % (4.0-6.0)
[2024-11-15 17:46] LABS: CREATININE, URINE 90.1 MG/DL
[2024-11-15 17:47] LABS: MALB URINE SIEMENS < 3.0 MG/L
== END ==
LOC: M SFHCCAPE 07:08
PROVIDERS: ATTEND Physician Assistant Medical
DX: E11.9 Type 2 diabetes mellitus without complications (principal); E78.2 Mixed hyperlipidemia